=== PATIENT | male | born 1985 | race Caucasian/White ===

== ENCOUNTER 2016-09-22 17:53 | Inpatient (IN) | payer OTHER ==
[~2016-09-22] VITALS: Ht 177.8 cm; Wt 77.1 kg
[~2016-09-22 17:53] MED LIST: MOTRIN800 MG PO; PENICILLIN VK500 MG PO; TOBRADEX 0.1%-0.5 ML OPH; TRAZODONE50 MG PO; ULTRAM50 MG PO
[2016-09-22 18:25] VITALS: BP 142/89
[2016-09-22 19:20] LABS: BASO # 0.1 10*3/uL (0.0-0.1); BASO % 0.7 % (0.0-1.0); EOS # 0.3 10*3/uL (0.0-0.4); EOS % 3.6 % (1.0-4.0); HEMATOCRIT 42.7 % (42.0-52.0); HEMOGLOBIN 13.9 g/dl (14.0-18.0); LYMPH # 2.5 10*3/uL (1.3-4.4); LYMPH % 30.4 % (27.0-41.0); MEAN CELL VOLUME 94.7 fl (80.0-94.0); MEAN CORPUSCULAR HGB 30.8 pg (27.0-31.0); MEAN CORPUSCULAR HGB CONC 32.6 g/dl (33.0-37.0); MEAN PLATELET VOLUME 9.1 fl (9.6-12.3); MONO # 0.7 10*3/uL (0.1-1.0); MONO % 8.4 % (3.0-9.0); NEUT # 4.7 10*3/uL (2.3-7.9); NEUT % 56.5 % (47.0-73.0); PLATELET COUNT AUTOMATED 278 10*3/uL (130-400); RED BLOOD COUNT 4.51 10*6/uL (4.50-5.90); RED CELL DISTRI WIDTH 11.9 % (0-14.5); WHITE BLOOD COUNT 8.4 10*3/uL (4.8-10.8)
[2016-09-22 19:31] LABS: BILIRUBIN NEGATIVE (NEGATIVE); BLOOD NEGATIVE (NEGATIVE); CLARITY SL CLOUDY (CLEAR); COLOR YELLOW (YELLOW); GLUCOSE NEGATIVE (NEGATIVE); KETONE NEGATIVE (NEGATIVE); LEUKO ESTERASE NEGATIVE (NEGATIVE); NITRITE NEGATIVE (NEGATIVE); PH 5.5 (5.0-9.0); PROTEIN NEGATIVE (NEGATIVE); SPECIFIC GRAVITY 1.025 (1.005-1.030); UROBILINOGEN 0.2 E.U./dl (0.2-1.0)
[2016-09-22 19:35] LABS: ALBUMIN 3.9 gm/dl (3.1-4.5); ALKALINE PHOSPHATASE 69 U/L (45-117); BILIRUBIN, TOTAL 0.3 mg/dl (0.2-1.0); BUN 8 mg/dl (7-24); CARBON DIOXIDE 30 mmol/L (21-32); CHLORIDE 106 mmol/L (98-107); EST GLOM FILT AFRICAN AMERICAN > 60 ml/min; GLUCOSE 99 mg/dL (65-99); SGOT/AST 17 IU/L (3-35); SGPT/ALT 32 U/L (12-78); SODIUM 142 mmol/L (136-145); TOTAL PROTEIN 7.4 gm/dL (6.4-8.2)
[2016-09-22 19:42] LABS: URINE AMPHETAMINES < 1000 (1000ng/ml); URINE BARBITURATES < 200 (200ng/ml); URINE COCAINE > 300 (300ng/ml)
[2016-09-22 19:56] LABS: BACTERIA TRACE; RBC 0-2 rbc/hpf (0-2)
[2016-09-22 19:57] LABS: URINE REFLEX COMMENT NO (NO)
[2016-09-23] VITALS: BP 115/58
[2016-09-23 04:00] VITALS: BP 100/52; BP 97/40
[2016-09-23 08:00] VITALS: BP 104/56
[2016-09-23 11:49] VITALS: BP 91/50
[2016-09-23 16:00] VITALS: BP 129/70
[2016-09-23 20:00] VITALS: BP 124/67
[2016-09-24] VITALS: BP 125/53
[2016-09-24 07:59] VITALS: BP 110/57
[2016-09-24 11:49] VITALS: BP 125/61
[2016-09-24 16:00] VITALS: BP 111/62
[2016-09-24 20:00] VITALS: BP 123/71
[2016-09-25] VITALS: BP 124/45
[2016-09-25 08:00] VITALS: BP 92/58
[2016-09-25] MEDS ORDERED: ROPINIROLE HYD0.5 MG PO (10:44)
[2016-09-25] MEDS ORDERED: ZOFRAN 4 MG ED2 TAB PO (10:44)
[2016-09-25] MEDS ORDERED: ATARAX,VISTARIL50 MG PO (10:44)
== END 2016-09-25 11:06 | disposition home or self-care (01) | DRG 897 ==
LOC: ED 17:53 → EDHOLD 18:52 → 4E 18:52
PROVIDERS: Emergency Medicine
DX: F11.23 Opioid dependence with withdrawal (principal); B19.20 Unspecified viral hepatitis C without hepatic coma; F41.9 Anxiety disorder, unspecified; F14.90 Cocaine use, unspecified, uncomplicated; F17.200 Nicotine dependence, unspecified, uncomplicated; Z83.3 Family history of diabetes mellitus; Z88.8 Allergy status to other drugs, medicaments and biological substances

== ENCOUNTER 2017-03-09 21:24 | Emergency (ER) | payer OTHER ==
[~2017-03-09] VITALS: Wt 75.7 kg
[~2017-03-09 21:24] MED LIST changes: +ATARAX,VISTARIL50 MG PO; +ROPINIROLE HYD0.5 MG PO; +ZOFRAN 4 MG ED2 TAB PO
[2017-03-09 21:31] VITALS: BP 129/100
[2017-03-09 21:51] LABS: BASO # 0.1 10*3/uL (0.0-0.1); BASO % 0.3 % (0.0-1.0); EOS # 0.1 10*3/uL (0.0-0.4); EOS % 0.6 % (1.0-4.0); HEMATOCRIT 41.8 % (42.0-52.0); LYMPH % 10.3 % (27.0-41.0); MEAN CELL VOLUME 92.3 fl (80.0-94.0); MEAN CORPUSCULAR HGB 30.9 pg (27.0-31.0); MEAN CORPUSCULAR HGB CONC 33.5 g/dl (33.0-37.0); MEAN PLATELET VOLUME 9.5 fl (9.6-12.3); MONO # 1.2 10*3/uL (0.1-1.0); NEUT # 16.1 10*3/uL (2.3-7.9); NEUT % 81.9 % (47.0-73.0); PLATELET COUNT AUTOMATED 256 10*3/uL (130-400); RED BLOOD COUNT 4.53 10*6/uL (4.50-5.90); WHITE BLOOD COUNT 19.6 10*3/uL (4.8-10.8)
[2017-03-09 22:08] LABS: BUN 17 mg/dl (7-24); CHLORIDE 102 mmol/L (98-107); CREATININE 1.31 mg/dL (0.70-1.30); SODIUM 140 mmol/L (136-145); TROPONIN I 0.041 ng/ml (<0.045)
== END 2017-03-09 23:28 | disposition home or self-care (01) ==
LOC: ED 21:24
PROVIDERS: Emergency Medicine Emergency Medical Services
DX: T40.1X1A Poisoning by heroin, accidental (unintentional), initial encounter (principal); F17.200 Nicotine dependence, unspecified, uncomplicated; F14.10 Cocaine abuse, uncomplicated; Y92.9 Unspecified place or not applicable

== ENCOUNTER 2017-04-12 05:44 | Emergency (ER) | payer OTHER ==
[~2017-04-12] VITALS: Ht 177.8 cm; Wt 90.7 kg
--- NOTE | ~2017-04-12 | EKG ---
[place], [place] ELECTROCARDIOGRAM REPORT NAME: ELAINE GONZALEZ UNIT #: [id number] ROOM: DOCTOR: FLAKO SIMS,KAY BIRTHDATE: [birth year] DOS: 04/12/2017 TIME: 0608 hours. IMPRESSION: 1. Sinus rhythm, sinus tachycardia. 2. Anterior ST elevation, suggestive of acute injury. 3. Normal QT interval. KAY ARRIOLA MD CM:EKGRPT:ELECTROCARDIOGRAM REPORT [id number] KAY ARRIOLA MD
[2017-04-12 06:30] LABS: HEMATOCRIT 51.4 % (42.0-52.0); HEMOGLOBIN 17.3 g/dl (14.0-18.0); MEAN CELL VOLUME 94.7 fl (80.0-94.0); MEAN CORPUSCULAR HGB 31.9 pg (27.0-31.0); MEAN CORPUSCULAR HGB CONC 33.7 g/dl (33.0-37.0); MEAN PLATELET VOLUME 9.3 fl (9.6-12.3); PLATELET COUNT AUTOMATED 343 10*3/uL (130-400); RED BLOOD COUNT 5.43 10*6/uL (4.50-5.90); RED CELL DISTRI WIDTH 12.2 % (0-14.5); WHITE BLOOD COUNT 25.4 10*3/uL (4.8-10.8)
[2017-04-12 06:38] LABS: ACT PARTIAL THROMBO TIME 22.1 SECONDS (20.8-31.5); INTERNATIONAL NORM RATIO 0.9 (2.0-3.5)
[2017-04-12 06:47] LABS: TOTAL CELLS COUNTED 100 #CELLS
[2017-04-12 06:48] LABS: PLATELET SUFFICIENCY NORMAL (NORMAL)
[2017-04-12 06:54] LABS: ALBUMIN 4.3 gm/dl (3.1-4.5); CREATININE 2.35 mg/dL (0.70-1.30); TOTAL PROTEIN 9.1 gm/dL (6.4-8.2)
[2017-04-12 07:31] LABS: TROPONIN I 1.53 ng/ml (<0.045)
[2017-04-12 07:32] LABS: POTASSIUM 7.6 mmol/L (3.5-5.1)
[2017-04-12 08:30] VITALS: BP 124/72
== END 2017-04-12 08:20 | disposition short-term general hospital (02) ==
LOC: ED 05:44
PROVIDERS: Student in an Organized Health Care Education/Training Program
DX: A41.9 Sepsis, unspecified organism (principal); R65.21 Severe sepsis with septic shock; N17.9 Acute kidney failure, unspecified; R79.89 Other specified abnormal findings of blood chemistry; M21.371 Foot drop, right foot; E87.5 Hyperkalemia; K72.00 Acute and subacute hepatic failure without coma; F17.200 Nicotine dependence, unspecified, uncomplicated; F10.10 Alcohol abuse, uncomplicated; F41.9 Anxiety disorder, unspecified; Z91.09 Other allergy status, other than to drugs and biological substances

== ENCOUNTER 2017-06-10 17:49 | Emergency (ER) | payer OTHER ==
[~2017-06-10] VITALS: Ht 177.8 cm; Wt 74.8 kg
[2017-06-10] MEDS ORDERED: NEURONTIN100 MG PO (17:58)
[2017-06-10 19:16] LABS: BASO % 0.4 % (0.0-1.0); EOS # 0.3 10*3/uL (0.0-0.4); EOS % 3.6 % (1.0-4.0); HEMATOCRIT 32.2 % (42.0-52.0); HEMOGLOBIN 10.6 g/dl (14.0-18.0); LYMPH # 3.3 10*3/uL (1.3-4.4); LYMPH % 45.7 % (27.0-41.0); MEAN CELL VOLUME 91.2 fl (80.0-94.0); MEAN CORPUSCULAR HGB CONC 32.9 g/dl (33.0-37.0); MEAN PLATELET VOLUME 8.4 fl (9.6-12.3); MONO # 0.7 10*3/uL (0.1-1.0); MONO % 9.6 % (3.0-9.0); NEUT # 2.9 10*3/uL (2.3-7.9); NEUT % 40.4 % (47.0-73.0); PLATELET COUNT AUTOMATED 264 10*3/uL (130-400); RED BLOOD COUNT 3.53 10*6/uL (4.50-5.90); RED CELL DISTRI WIDTH 13.1 % (0-14.5); WHITE BLOOD COUNT 7.3 10*3/uL (4.8-10.8)
[2017-06-10 19:36] LABS: ALBUMIN 3.6 gm/dl (3.1-4.5); ALKALINE PHOSPHATASE 65 U/L (45-117); BUN 21 mg/dl (7-24); CHLORIDE 106 mmol/L (98-107); CREATININE 1.28 mg/dL (0.70-1.30); SGOT/AST 15 IU/L (3-35); SGPT/ALT 26 U/L (12-78); SODIUM 141 mmol/L (136-145); TOTAL PROTEIN 6.6 gm/dL (6.4-8.2)
[2017-06-10 19:42] LABS: TROPONIN I < 0.015 ng/ml (<0.045)
[2017-06-10 20:45] VITALS: BP 136/74
== END 2017-06-10 20:46 | disposition home or self-care (01) ==
LOC: ED 17:49
PROVIDERS: Physician Assistant
DX: M25.471 Effusion, right ankle (principal); R60.0 Localized edema; F17.200 Nicotine dependence, unspecified, uncomplicated; F14.10 Cocaine abuse, uncomplicated; Z79.899 Other long term (current) drug therapy

== ENCOUNTER 2018-01-13 17:27 | Emergency (ER) | payer OTHER ==
[~2018-01-13] VITALS: Wt 70.3 kg
[~2018-01-13 17:27] MED LIST changes: +NEURONTIN100 MG PO
[2018-01-13] MEDS ORDERED: EPIPEN 2-P0.3 MG/0.3 IJ (17:59)
[2018-01-13] MEDS ORDERED: MEDROL DOSEPAK4 MG PO (17:59)
[2018-01-13] MEDS ORDERED: CLARITIN10 MG PO (17:59)
[2018-01-13] MEDS ORDERED: PEPCID20 MG PO (17:59)
[2018-01-13 18:26] VITALS: BP 111/48
[2018-01-13] MEDS ORDERED: PREDNISONE20 M1 PO (20:04)
[2018-01-13] MEDS ORDERED: ATARAX,VISTARIL50 MG PO (20:04)
== END 2018-01-13 20:11 | disposition home or self-care (01) ==
LOC: ED 17:27
DX: T78.2XXA Anaphylactic shock, unspecified, initial encounter (principal); R21 Rash and other nonspecific skin eruption; R20.2 Paresthesia of skin; R22.0 Localized swelling, mass and lump, head; F17.200 Nicotine dependence, unspecified, uncomplicated; Z91.09 Other allergy status, other than to drugs and biological substances

== ENCOUNTER 2019-08-04 12:01 | Inpatient (IN) | payer OTHER ==
[~2019-08-04] VITALS: Ht 180.3 cm; Wt 81.2 kg
[~2019-08-04 12:01] MED LIST changes: +CLARITIN10 MG PO; +EPIPEN 2-P0.3 MG/0.3 IJ; +MEDROL DOSEPAK4 MG PO; +PEPCID20 MG PO; +PREDNISONE20 M1 PO
[2019-08-04 12:04] VITALS: BP 177/114
[2019-08-04 13:02] LABS: BASO % 0.2 % (0.0-1.0); EOS % 0.1 % (1.0-4.0); HEMATOCRIT 43.8 % (42.0-52.0); LYMPH # 0.9 10*3/uL (1.3-4.4); LYMPH % 5.1 % (27.0-41.0); MEAN CELL VOLUME 97.8 fl (80.0-94.0); MEAN CORPUSCULAR HGB 31.9 pg (27.0-31.0); MEAN CORPUSCULAR HGB CONC 32.6 g/dl (33.0-37.0); MEAN PLATELET VOLUME 9.2 fl (9.6-12.3); MONO # 1.3 10*3/uL (0.1-1.0); MONO % 7.2 % (3.0-9.0); NEUT # 15.8 10*3/uL (2.3-7.9); NEUT % 86.3 % (47.0-73.0); PLATELET COUNT AUTOMATED 318 10*3/uL (130-400); RED BLOOD COUNT 4.48 10*6/uL (4.50-5.90); RED CELL DISTRI WIDTH 11.9 % (0-14.5); WHITE BLOOD COUNT 18.3 10*3/uL (4.8-10.8)
[2019-08-04 13:13] LABS: ACT PARTIAL THROMBO TIME 23.2 SECONDS (20.0-32.1); INTERNATIONAL NORM RATIO 0.9 (2.0-3.5)
[2019-08-04 13:17] LABS: ALBUMIN 4.1 gm/dl (3.1-4.5); ALKALINE PHOSPHATASE 72 U/L (45-117); BUN 19 mg/dl (7-24); CHLORIDE 107 mmol/L (98-107); CREATININE 1.25 mg/dL (0.70-1.30); LIPASE 135 U/L (73-393); POTASSIUM 4.8 mmol/L (3.5-5.1); SGOT/AST 32 IU/L (3-35); SGPT/ALT 45 U/L (12-78); SODIUM 137 mmol/L (136-145); TOTAL PROTEIN 7.7 gm/dL (6.4-8.2)
[2019-08-04 13:19] LABS: ACETAMINOPHEN (TYLENOL) < 5.0 ug/ml (10-30); ETHYL ALCOHOL < 3.0 mg/dl (<3); TROPONIN I 0.105 ng/ml (<0.045)
[2019-08-04 14:21] LABS: BILIRUBIN NEGATIVE (NEGATIVE); CLARITY CLEAR (CLEAR); COLOR YELLOW (YELLOW); GLUCOSE NEGATIVE (NEGATIVE); KETONE NEGATIVE (NEGATIVE)
[2019-08-04 14:22] LABS: BLOOD NEGATIVE (NEGATIVE); NITRITE NEGATIVE (NEGATIVE); UROBILINOGEN 0.2 E.U./dl (0.2-1.0)
[2019-08-04 14:27] LABS: LEUKO ESTERASE NEGATIVE (NEGATIVE)
[2019-08-04 14:28] LABS: BACTERIA TRACE; HYALINE CAST 0-2
[2019-08-04 14:30] LABS: URINE AMPHETAMINES < 1000 (1000ng/ml); URINE BARBITURATES < 200 (200ng/ml); URINE BENZODIAZEPINES < 200 (200ng/ml); URINE CANNABINOIDS (THC) < 50 (50ng/ml); URINE COCAINE < 300 (300ng/ml); URINE METHADONE < 300 (300ng/ml); URINE OPIATES > 300 (300ng/ml)
[2019-08-04 14:31] LABS: URINE PHENCYCLIDINE < 25 (25ng/ml)
[2019-08-04 15:15] VITALS: BP 99/62
[2019-08-04 16:00] VITALS: BP 118/70
--- NOTE | 2019-08-04 17:26 | NUR ---
PATIENT WILL NOT BE MOVED UPSTAIRS UNTIL AFTER 1900 PER HAND SUTURE WINDER
[2019-08-04 19:30] VITALS: BP 118/70
--- NOTE | 2019-08-04 19:30 | NUR ---
A 33, admitted to [facility], under the services of INDERJIT Herrera MD with a diagnosis of ELEVATED TROP. Chief complaint is PATIENT SNORTED UNKNOWN PILL THAT HE THOUGHT WAS SUBUTEX. Patient arrived via wheel chair from ER. Monitor applied. Initial assessment completed. Vital signs taken and recorded. INDERJIT HERRERA MD notified of admission to the unit. Orders received. See assessment for past medical history, medications and allergies. Patient and/or family oriented to unit. Clothing/patient valuable form completed. GRECIA WEST
--- NOTE | 2019-08-04 20:33 | NUR ---
DR MOROCHO CALLED FOR ORDERS FOR PT; UNSURE IF THEY ARE COVERING FOR DR ORDAZ AT THIS TIME
--- NOTE | 2019-08-04 20:55 | NUR ---
ANSWERING SERVICE AWARE OF CONSULT
--- NOTE | 2019-08-04 21:41 | NUR ---
DR MOROCHO NOTIFIED OF PT'S CRITICAL TROPONIN
[2019-08-04 23:49] VITALS: BP 109/93
[2019-08-05 04:32] VITALS: BP 118/79
[2019-08-05 06:29] LABS: BASO % 0.5 % (0.0-1.0); EOS # 0.3 10*3/uL (0.0-0.4); EOS % 4.2 % (1.0-4.0); HEMATOCRIT 41.5 % (42.0-52.0); LYMPH # 3.2 10*3/uL (1.3-4.4); LYMPH % 43.8 % (27.0-41.0); MEAN CELL VOLUME 96.7 fl (80.0-94.0); MEAN CORPUSCULAR HGB 31.9 pg (27.0-31.0); MEAN PLATELET VOLUME 9.3 fl (9.6-12.3); MONO # 0.7 10*3/uL (0.1-1.0); MONO % 9.5 % (3.0-9.0); NEUT # 3.1 10*3/uL (2.3-7.9); NEUT % 41.7 % (47.0-73.0); PLATELET COUNT AUTOMATED 269 10*3/uL (130-400); RED BLOOD COUNT 4.29 10*6/uL (4.50-5.90); RED CELL DISTRI WIDTH 11.9 % (0-14.5); WHITE BLOOD COUNT 7.4 10*3/uL (4.8-10.8)
[2019-08-05 06:40] LABS: BUN 16 mg/dl (7-24); CHLORIDE 106 mmol/L (98-107); PHOSPHOROUS 2.9 mg/dL (2.5-4.9); SODIUM 138 mmol/L (136-145)
[2019-08-05 08:00] VITALS: BP 119/71
--- NOTE | 2019-08-05 09:00 | NUR ---
Net C Developer in to talk to patient. Patient states lives at home alone with his family checking in on him. There are 2 steps in the home. Physician: Dr. Buzz Agosto Pharmacy: [facility] Home health services: none Patient's level of ADLs: INDEPENDENT Patient has working utilities: yes DME: none Follow-up physician's appointment after d/c: he prefers to make his own follow up appt after discharge Does patient want to access PORTAL?: no Discharge plan discussed with patient. He lives at home alone with his family checking in on him. He is independent in his ADLs and ambulation. Discussed home health care services and he denies any home needs at this time. When medically stable he will be discharged to home. He states his father will provide transportation on discharge. MADSYON DIANE
--- NOTE | 2019-08-05 14:16 | NUR ---
[facility] Discharge instructions reviewed with patient/family. Patient receptive and verbalizes understanding. Follow-up care arranged. Written instructions given to patient/family. ALVAREZ TINOCO
== END 2019-08-05 14:55 | disposition home or self-care (01) | DRG 948 ==
LOC: ED 12:01 → 4NE 16:31 → EDHOLD 16:31 → 4NE 17:24
PROVIDERS: Internal Medicine; Physician Assistant; ADMIT Internal Medicine
DX: R79.89 Other specified abnormal findings of blood chemistry (principal); F11.20 Opioid dependence, uncomplicated; F19.10 Other psychoactive substance abuse, uncomplicated; E83.41 Hypermagnesemia; D72.829 Elevated white blood cell count, unspecified; B19.20 Unspecified viral hepatitis C without hepatic coma; F41.9 Anxiety disorder, unspecified; F17.210 Nicotine dependence, cigarettes, uncomplicated; Z83.3 Family history of diabetes mellitus; Z71.6 Tobacco abuse counseling; Z80.0 Family history of malignant neoplasm of digestive organs; Z91.048 Other nonmedicinal substance allergy status; Z79.899 Other long term (current) drug therapy

== ENCOUNTER 2021-07-18 09:04 | Emergency (ER) | payer OTHER ==
[~2021-07-18] VITALS: Wt 77.1 kg
[2021-07-18 09:22] VITALS: BP 132/98
[2021-07-18 09:50] LABS: BASO % 0.3 % (0.0-1.0); EOS # 0.5 10*3/uL (0.0-0.4); EOS % 5.8 % (1.0-4.0); HEMATOCRIT 35.9 % (42.0-52.0); LYMPH # 2.3 10*3/uL (1.3-4.4); LYMPH % 24.7 % (27.0-41.0); MEAN CELL VOLUME 90.4 fl (80.0-94.0); MEAN CORPUSCULAR HGB 31.2 pg (27.0-31.0); MEAN CORPUSCULAR HGB CONC 34.5 g/dl (33.0-37.0); MEAN PLATELET VOLUME 9.1 fl (9.6-12.3); MONO # 1.4 10*3/uL (0.1-1.0); MONO % 15.1 % (3.0-9.0); NEUT % 53.9 % (47.0-73.0); PLATELET COUNT AUTOMATED 279 10*3/uL (130-400); RED BLOOD COUNT 3.97 10*6/uL (4.50-5.90); RED CELL DISTRI WIDTH 11.6 % (0-14.5); WHITE BLOOD COUNT 9.3 10*3/uL (4.8-10.8)
[2021-07-18 10:06] LABS: ALKALINE PHOSPHATASE 69 U/L (45-117); BUN 12 mg/dl (7-24); CHLORIDE 101 mmol/L (98-107); CREATININE 1.05 mg/dL (0.70-1.30); POTASSIUM 4.3 mmol/L (3.5-5.1); SGOT/AST 52 IU/L (3-35); SGPT/ALT 46 U/L (12-78); SODIUM 136 mmol/L (136-145); TOTAL PROTEIN 6.8 gm/dL (6.4-8.2)
[2021-07-18] MEDS ORDERED: VIBRA-TAB100 MG PO (11:45)
== END 2021-07-18 11:48 | disposition home or self-care (01) ==
LOC: ED 09:04
PROVIDERS: Emergency Medicine
DX: L03.115 Cellulitis of right lower limb (principal); Z87.891 Personal history of nicotine dependence; Z98.890 Other specified postprocedural states

== ENCOUNTER 2021-08-15 18:11 | Emergency (ER) | payer OTHER ==
[~2021-08-15] VITALS: Ht 177.8 cm; Wt 77.1 kg
[~2021-08-15 18:11] MED LIST changes: +VIBRA-TAB100 MG PO
[2021-08-15 18:14] VITALS: BP 125/82
== END 2021-08-15 19:12 | disposition left against medical advice (07) ==
LOC: ED 18:11
DX: T50.901A Poisoning by unspecified drugs, medicaments and biological substances, accidental (unintentional), initial encounter (principal); F17.200 Nicotine dependence, unspecified, uncomplicated; Z98.890 Other specified postprocedural states; Y92.89 Other specified places as the place of occurrence of the external cause

== ENCOUNTER 2022-07-23 19:46 | Emergency (ER) | payer OTHER ==
[~2022-07-23] VITALS: Ht 180.3 cm; Wt 81.6 kg
[2022-07-23 19:56] VITALS: BP 135/100
== END 2022-07-23 20:10 | disposition left against medical advice (07) ==
LOC: ED 19:46
DX: T40.5X1A Poisoning by cocaine, accidental (unintentional), initial encounter (principal); Z87.891 Personal history of nicotine dependence; Y92.89 Other specified places as the place of occurrence of the external cause

== ENCOUNTER → 2024-02-08 | Outpatient (CLI) | payer OTHER ==
[2024-02-08 08:47] LABS: BASO % 0.4 % (0.0-1.0); EOS # 0.3 10*3/uL (0.0-0.4); EOS % 4.5 % (1.0-4.0); HEMATOCRIT 45.1 % (42.0-52.0); LYMPH # 2.7 10*3/uL (1.3-4.4); LYMPH % 36.3 % (27.0-41.0); MEAN CELL VOLUME 91.5 fl (80.0-94.0); MEAN CORPUSCULAR HGB 30.2 pg (27.0-31.0); MEAN PLATELET VOLUME 8.9 fl (9.6-12.3); MONO # 0.7 10*3/uL (0.1-1.0); NEUT # 3.7 10*3/uL (2.3-7.9); NEUT % 49.4 % (47.0-73.0); PLATELET COUNT AUTOMATED 336 10*3/uL (130-400); RED BLOOD COUNT 4.93 10*6/uL (4.50-5.90); RED CELL DISTRI WIDTH 12.1 % (0-14.5); WHITE BLOOD COUNT 7.6 10*3/uL (4.8-10.8)
[2024-02-08 09:45] LABS: ALKALINE PHOSPHATASE 95 U/L (46-116); BUN 6 mg/dl (9-23); CHLORIDE 107 mmol/L (98-107); CHOLESTEROL 194 mg/dL (<200); FREE T4 1.39 ng/dl (0.89-1.76); LDL CHOLESTEROL 125 mg/dL (9-159); POTASSIUM 3.7 mmol/L (3.4-5.1); SGPT/ALT 23 U/L (5-49); TOTAL PROTEIN 7.9 gm/dL (6.0-8.0); TRIGLYCERIDES 138 mg/dl (<150)
[2024-02-08 10:21] LABS: VITAMIN D, 25-HYDROXY 49.6 ng/mL (30-100)
== END | disposition home or self-care (01) ==
LOC: LAB 07:51
PROVIDERS: ATTEND Internal Medicine
DX: R03.0 Elevated blood-pressure reading, without diagnosis of hypertension (principal)

== ENCOUNTER → 2024-02-11 | Outpatient (CLI) | payer OTHER ==
[2024-02-12 18:07] LABS: HCV LOG10 6.767 (.); HEPATITIS C QNT 5850000 IU/mL (.)
== END | disposition home or self-care (01) ==
LOC: LAB 11:38
PROVIDERS: ATTEND Internal Medicine
DX: B18.2 Chronic viral hepatitis C (principal)

== ENCOUNTER → 2024-02-23 | Outpatient (CLI) | payer OTHER | END | disposition home or self-care (01) | LOC: US 04:39 | PROVIDERS: ATTEND Internal Medicine | DX: B18.2 Chronic viral hepatitis C (principal) ==

== ENCOUNTER → 2024-10-25 | Outpatient (CLI) | payer BC | END | disposition home or self-care (01) | LOC: CARD 09:30 | PROVIDERS: ATTEND Internal Medicine | DX: R42 Dizziness and giddiness (principal) ==